=== PATIENT | male | born 1995 | race Caucasian/White ===

== ENCOUNTER 2019-10-16 19:02 | Emergency (ER) | payer BC ==
[~2019-10-16] VITALS: Ht 193 cm; Wt 88.6 kg
[2019-10-16 19:08] VITALS: BP 127/71; TEMP 98.3
[2019-10-16 20:39] VITALS: PULSE 83
== END 2019-10-16 20:39 | disposition home or self-care (01) ==
LOC: COL.ER 19:02
DX: S01.511A Laceration without foreign body of lip, initial encounter (principal); W54.0XXA Bitten by dog, initial encounter